=== PATIENT | female | born 1985 | race Caucasian/White ===

== ENCOUNTER 2017-03-28 19:44 | Emergency (ER) | payer SELFPAY ==
[2017-03-28 19:46] VITALS: BP 127/93; PULSE 94; RESP 16; TEMP 99.5; O2SAT 98
[2017-03-28 22:09] LABS: AUTOMATED NEUTROPHIL # 6.7 TH/MM3 (1.8-7.7); BASOPHIL # 0.1 TH/MM3 (0-0.2); BASOPHIL % 1.1 % (0.0-2.0); EOSINOPHIL # 0.3 TH/MM3 (0-0.4); EOSINOPHIL % 2.2 % (0.0-4.0); HEMATOCRIT 41.3 % (35.0-46.0); HEMO FLAGS DIFF FINAL; LYMPH % 37.8 % (9.0-44.0); LYMPHOCYTE # 4.7 TH/MM3 (1.0-4.8); MEAN CELL VOLUME 86.2 FL (80.0-100.0); MEAN CORPUSCULAR HEMOGLOBIN 29.4 PG (27.0-34.0); MEAN CORPUSCULAR HGB CONC 34.2 % (32.0-36.0); MONO % 5.4 % (0.0-8.0); NEUT % 53.5 % (16.0-70.0); PLATELET COUNT 326 TH/MM3 (150-450); RED CELL DISTRIBUTION WIDTH 14.8 % (11.6-17.2); WHITE BLOOD COUNT 12.4 TH/MM3 (4.0-11.0)
[2017-03-28] MEDS ORDERED: ZOLO100T PO (22:11)
[2017-03-28] MEDS ORDERED: METF500T PO (22:11)
[2017-03-28] MEDS ORDERED: ARIP2 PO (22:11)
[2017-03-28] MEDS ORDERED: FERR325C PO (22:11)
[2017-03-28] MEDS ORDERED: ALUMINUM/MAGNESIUM/SIMETH 30 ML CUP PO ONE (22:15)
[2017-03-28] MEDS ORDERED: FAMOTIDINE 20 MG/2 ML VIAL IV PUSH ONE (22:15)
[2017-03-28] MEDS ORDERED: SODIUM CHLOR 0.9% 1000 ML INJ 1,000 ML IV SCH (22:15)
[2017-03-28] MEDS ORDERED: SODIUM CHLORIDE 0.9% FLUSH 10 ML FLUSH IV FLUSH PRN (22:15)
[2017-03-28] MEDS ORDERED: ATROPINE/SCOPOLAM/HYOSCYAM/PB ELIXIR 10 ML CUP PO ONE (22:15)
--- NOTE | 2017-03-28 22:15 | PD ---
HPI Chief Complaint: Abdominal Pain Time Seen by Provider: 22:01 Travel History International Travel<30 days: No Contact w/Intl Traveler<30days: No Traveled to known affect area: No History of Present Illness HPI 31-year-old female complains of abdominal pain, nausea vomiting diarrhea, blood in the stool. Patient states that she has history of peptic ulcer status post endoscopy in the past. Patient was put on Protonix and antibiotic for one month. Patient states that she never had follow-up with a GI specialist after the treatment. Patient started having diffuse abdominal pain for the past 5 days. Patient states the pain in cramping pain and sharp pain diffuse over the abdomen. Patient denies any pain radiation. Patient states that she has intermittent nausea vomiting diarrhea with blood-tinged stool. Patient denies any dysuria or frequency. Patient denies any vaginal discharge or bleeding. Patient states that she has intermittent fever and chills for the past 4 days also. Patient states that abdominal pain is worse with eating. PFSH Past Medical History Cardiovascular Problems: Yes (HX OF ENDOCARDITIS) Kidney Stones: Yes Musculoskeletal: Yes (scoliosis, Doty Rods) ?: Not LMP: 03/01/17 Ovarian Cysts: Yes (PCOS, endometriosis) Social History Alcohol Use: No Tobacco Use: Yes Substance Use: Yes (clean of opiates x 6 months) Allergies-Medications (Allergen,Severity, Reaction): Coded Allergies: Penicillins (Verified Allergy, Severe, 03/28/17) metoclopramide (Verified Allergy, Severe, 03/28/17) ondansetron (Verified Allergy, Severe, 03/28/17) vancomycin (Verified Allergy, Severe, 03/28/17) iodine (Verified Allergy, Unknown, 03/28/17) Reported Meds & Prescriptions Reported Meds & Active Scripts Active Reported Iron (Ferrous Sulfate) 325 Mg Cap 325 Mg PO DAILY Metformin (Metformin HCl) 500 Mg Tab 500 Mg PO BIDPC Abilify (Aripiprazole) 2 Mg Tab 2 Mg PO DAILY Zoloft (Sertraline HCl) 100 Mg Tab 200 Mg PO DAILY Review of Systems General / Constitutional: No: Fever Eyes: No: Visual changes HENT: No: Headaches Cardiovascular: No: Chest Pain or Discomfort Respiratory: No: Shortness of Breath Gastrointestinal: Positive: Nausea, Vomiting, Diarrhea, Abdominal Pain, Hematochezia Genitourinary: No: Dysuria Musculoskeletal: No: Pain Skin: No Rash Neurologic: No: Weakness Psychiatric: No: Depression Endocrine: No: Polydipsia Hematologic/Lymphatic: No: Easy Bruising Physical Exam Narrative GENERAL: Well-nourished, well-developed patient. SKIN: Focused skin assessment warm/dry. HEAD: Normocephalic. EYES: No scleral icterus. No injection or drainage. NECK: Supple, trachea midline. No JVD or lymphadenopathy. CARDIOVASCULAR: Regular rate and rhythm without murmurs, gallops, or rubs. RESPIRATORY: Breath sounds equal bilaterally. No accessory muscle use. GASTROINTESTINAL: Abdomen soft, nondistended. Patient had mild diffuse tenderness over the abdomen. No rebound tenderness. No mass. MUSCULOSKELETAL: No cyanosis, or edema. BACK: Nontender without obvious deformity. No CVA tenderness. Data Data Last Documented VS Vital Signs Date Time Temp Pulse Resp B/P (MAP) Pulse Ox O2 Delivery O2 Flow Rate FiO2 03/29/17 00:15 98.4 82 14 122/89 (100) 100 Orders Orders Complete Blood Count With Diff (03/28/17 19:54) Comprehensive Metabolic Panel (03/28/17 19:54) Lipase (03/28/17 19:54) Prothrombin Time / Inr (Pt) (03/28/17 19:54) Act Partial Throm Time (Ptt) (03/28/17 19:54) Urinalysis - C+S If Indicated (03/28/17 19:54) Ed Urine Pregnancytest Poc (03/28/17 19:54) Type And Screen (03/28/17 19:54) Sodium Chlor 0.9% 1000 Ml Inj (Ns 1000 M (03/28/17 22:15) Sodium Chloride 0.9% Flush (Ns Flush) (03/28/17 22:15) Famotidine Inj (Pepcid Inj) (03/28/17 22:15) Al-Mag Hy-Si 40-40-4 Mg/Ml Liq (Mag-Al P (03/28/17 22:15) Jslxy-Hgnwud-Uerhev-Pb Liq ( Liq (03/28/17 22:15) Promethazine Inj (Phenergan Inj) (03/28/17 22:30) Ct Abd/Pel W/O Iv Contrast (03/28/17 22:33) Labs Laboratory Tests Test 03/28/17 21:42 White Blood Count 12.4 TH/MM3 Red Blood Count 4.80 MIL/MM3 Hemoglobin 14.1 GM/DL Hematocrit 41.3 % Mean Corpuscular Volume 86.2 FL Mean Corpuscular Hemoglobin 29.4 PG Mean Corpuscular Hemoglobin Concent 34.2 % Red Cell Distribution Width 14.8 % Platelet Count 326 TH/MM3 Mean Platelet Volume 8.2 FL Neutrophils (%) (Auto) 53.5 % Lymphocytes (%) (Auto) 37.8 % Monocytes (%) (Auto) 5.4 % Eosinophils (%) (Auto) 2.2 % Basophils (%) (Auto) 1.1 % Neutrophils # (Auto) 6.7 TH/MM3 Lymphocytes # (Auto) 4.7 TH/MM3 Monocytes # (Auto) 0.7 TH/MM3 Eosinophils # (Auto) 0.3 TH/MM3 Basophils # (Auto) 0.1 TH/MM3 CBC Comment DIFF FINAL Differential Comment Prothrombin Time 10.2 SEC Prothromb Time International Ratio 0.9 RATIO Activated Partial Thromboplast Time 28.4 SEC Blood Urea Nitrogen 5 MG/DL Creatinine 0.54 MG/DL Random Glucose 88 MG/DL Total Protein 8.1 GM/DL Albumin 3.8 GM/DL Calcium Level 9.3 MG/DL Alkaline Phosphatase 71 U/L Aspartate Amino Transf (AST/SGOT) 44 U/L Alanine Aminotransferase (ALT/SGPT) 53 U/L Total Bilirubin 0.3 MG/DL Sodium Level 136 MEQ/L Potassium Level 4.0 MEQ/L Chloride Level 105 MEQ/L Carbon Dioxide Level 21.5 MEQ/L Anion Gap 10 MEQ/L Estimat Glomerular Filtration Rate 131 ML/MIN Lipase 165 U/L [facility] Medical Decision Making Medical Screen Exam Complete: Yes Emergency Medical Condition: Yes Interpretation(s) 12:22 AM. Last Impressions Abdomen/Pelvis CT 03/28/17 [id number] Signed Impressions: Service Date/Time: Tuesday, March 28, 2017 23:08 - CONCLUSION: 1. No evidence of acute abdominal or pelvic process. No masses are identified. Kali Kwan MD 12:22 AM. CBC WBC 12.4. Normal differential. CMP within normal limit. Differential Diagnosis Differential diagnosis including stridor, PUD, pancreatitis, cholecystitis, colitis, UTI, pyelonephritis, nephrolithiasis. Narrative Course 31-year-old female with abdominal pain, nausea vomiting diarrhea, blood in the stool. History of peptic ulcer disease. Normal saline solution 1 25 cc an hour. Pepcid 20 mg IV. Maalox 30 cc by mouth. 10 cc by mouth. Diagnosis Primary Impression: Gastritis Qualified Codes: K29.00 - Acute gastritis without bleeding Additional Impression: Gastroenteritis Patient Instructions: General Instructions Additional Instructions: Take medications as directed. Follow-up local physician and front end java developer. Return if worse. Med/Other Pt SpecificInfo: Prescription(s) given Scripts Dicyclomine (Bentyl) 10 Mg Cap 10 MG PO TID for Bowel Management, #15 CAP 0 Refills Prov: Thierno Smith MD 03/29/17 Promethazine (Phenergan) 25 Mg Tablet 25 MG PO Q6H Y for NAUSEA OR VOMITING, #12 TAB 0 Refills Prov: Thierno Smith MD 03/29/17 Sucralfate (Carafate) 1 Gram Tab 1 GM PO QID for Ulcer Prevention, #120 TAB 0 Refills On empty stomach Prov: Thierno Smith MD 03/29/17 Pantoprazole (Protonix) 40 Mg Tab 40 MG PO DAILY for Reflux, #30 TAB 0 Refills Prov: Thierno Smith MD 03/29/17 Disposition: 01 DISCHARGE HOME Condition: Stable Thierno Smith MD Mar 28, 2017 22:15
[2017-03-28 22:20] LABS: APTT (PATIENT) 28.4 SEC (24.3-30.1); INTERNATIONAL NORMALIZED RATIO 0.9 RATIO; PROTHROMBIN TIME - PATIENT 10.2 SEC (9.8-11.6)
[2017-03-28] MEDS ORDERED: PROMETHAZINE INJ 25 MG/ML VIAL IM ONE (22:30)
[2017-03-28 22:39] LABS: ALKALINE PHOSPHATASE 71 U/L (45-117); ALT (GPT) 53 U/L (10-53); TOTAL BILIRUBIN ADULT 0.3 MG/DL (0.2-1.0)
[2017-03-28 22:58] LABS: ANION GAP 10 MEQ/L (5-15); AST (GOT) 44 U/L (15-37); BICARBONATE 21.5 MEQ/L (21.0-32.0); BLOOD UREA NITROGEN 5 MG/DL (7-18); CHLORIDE 105 MEQ/L (98-107); GLOMERULAR FILTRATION RATE 131 ML/MIN (>89); SODIUM (NA) 136 MEQ/L (136-145)
--- NOTE | 2017-03-28 23:56 | RADRPT ---
EXAM DATE/TIME: 03/28/2017 23:08 [facility] COMPARISON: No previous studies available for comparison. INDICATIONS : Abdomen pain with blood in stool past 3 days. ORAL CONTRAST: No oral contrast ingested. RADIATION DOSE: 6.64 CTDIvol (mGy) MEDICAL HISTORY : Cardiovascular disease. SURGICAL HISTORY : Doty rods ENCOUNTER: Initial ACUITY: 3 days PAIN SCALE: 6/10 LOCATION: Bilateral abdomen TECHNIQUE: Volumetric scanning of the abdomen and pelvis was performed. Using automated exposure control and ad justment of the mA and/or kV according to patient size, radiation dose was kept as low as reasonably achievable to obtain optimal diagnostic quality images. DICOM format image data is available electro nically for review and comparison. FINDINGS: Examination of the lung bases demonstrates no abnormality. No pleural fluid is identified. No pulmona ry nodules are present. The liver and spleen are free of focal defects. The gallbladder and pancreas demonstrate no abnormality. The adrenal glands are normal. The kidneys demonstrate no evidence of skinny id renal mass or hydronephrosis. No free fluid or abdominal masses are identified. No para-aortic krunal nopathy is seen. 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 There is previous fixation of scolio sis with Doty rods. Examination of the pelvis demonstrates no evidence of free fluid or pelvic mass. No abnormally enlarg ed inguinal or retroperitoneal lymph nodes are present. The bladder is unremarkable. CONCLUSION: 1. No evidence of acute abdominal or pelvic process. No masses are identified. Kali Kwan MD on March 28, 2017 at 23:53 Board Certified Radiologist. This report was verified electronically.
[2017-03-29 00:15] VITALS: BP 122/89; PULSE 82; RESP 14; TEMP 98.4; O2SAT 100
[2017-03-29] MEDS ORDERED: PROM25TA10 PO (00:29)
[2017-03-29] MEDS ORDERED: DICY10 PO (00:29)
[2017-03-29] MEDS ORDERED: CARA1TAB6 PO (00:29)
[2017-03-29] MEDS ORDERED: PROT40TA PO (00:29)
== END 2017-03-29 00:46 | disposition home or self-care (01) ==
LOC: NEPD 19:44
DX: K29.00 Acute gastritis without bleeding (principal); K52.9 Noninfective gastroenteritis and colitis, unspecified; Z72.0 Tobacco use
CPT/HCPCS: 74176; 80053; 83690; 84703; 85025; 85610; 85730; 86850; 86900; 86901; 96372; 96374; 99285; J2550; J7030

== ENCOUNTER 2017-04-13 15:45 | Emergency (ER) | payer SELFPAY ==
[~2017-04-13] VITALS: Ht 144.8 cm; Wt 60.0 kg
[~2017-04-13 15:45] MED LIST: ARIP2 PO; CARA1TAB6 PO; DICY10 PO; FERR325C PO; METF500T PO; PROM25TA10 PO; PROT40TA PO; ZOLO100T PO
[2017-04-13 15:46] VITALS: BP 141/90; PULSE 75; RESP 18; TEMP 99; O2SAT 99
[2017-04-13] MEDS ORDERED: SODIUM CHLOR 0.9% 1000 ML INJ 1,000 ML IV ONE ×2 (16:01→18:00)
[2017-04-13] MEDS ORDERED: SODIUM CHLORIDE 0.9% FLUSH 10 ML FLUSH IVF PRN (16:15)
[2017-04-13] MEDS ORDERED: PROCHLORPERAZINE INJ 10 MG/2 ML VIAL IV PUSH ONE (16:15)
--- NOTE | 2017-04-13 16:55 | PD ---
HPI Chief Complaint: GI Complaint Time Seen by Provider: 15:57 Travel History International Travel<30 days: No Contact w/Intl Traveler<30days: No Traveled to known affect area: No History of Present Illness HPI Patient is a 31-year-old female presenting to the emergency department for evaluation of burning with urination, nausea, vomiting, flank pain. Patient states this has been going on for week getting worse over the last 2-3 days. The nausea and vomiting started 2 days ago. He reports a history of urinary tract infections and kidney stones. She's been taking Tylenol and ibuprofen for the pain, she reports a fever with a max temp 102 last night. 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 PFSH Past Medical History Cardiovascular Problems: Yes (HX OF ENDOCARDITIS) Kidney Stones: Yes Musculoskeletal: Yes (scoliosis, Doty Rods) ?: Not LMP: 03/30/17 Ovarian Cysts: Yes (PCOS, endometriosis) Social History Alcohol Use: No Tobacco Use: Yes Substance Use: Yes (clean of opiates x 6 months) Allergies-Medications (Allergen,Severity, Reaction): Coded Allergies: Penicillins (Verified Allergy, Severe, 03/28/17) metoclopramide (Verified Allergy, Severe, 03/28/17) ondansetron (Verified Allergy, Severe, 03/28/17) prochlorperazine (Verified Allergy, Severe, 04/13/17) vancomycin (Verified Allergy, Severe, 03/28/17) iodine (Verified Allergy, Unknown, 03/28/17) Reported Meds & Prescriptions Reported Meds & Active Scripts Active Bentyl (Dicyclomine HCl) 10 Mg Cap 10 Mg PO TID Phenergan (Promethazine HCl) 25 Mg Tablet 25 Mg PO Q6H PRN Carafate (Sucralfate) 1 Gram Tab 1 Gm PO QID On empty stomach Protonix (Pantoprazole Sodium) 40 Mg Tab 40 Mg PO DAILY Reported Iron (Ferrous Sulfate) 325 Mg Cap 325 Mg PO DAILY Metformin (Metformin HCl) 500 Mg Tab 500 Mg PO BIDPC Abilify (Aripiprazole) 2 Mg Tab 2 Mg PO DAILY Zoloft (Sertraline HCl) 100 Mg Tab 200 Mg PO DAILY Review of Systems Except as stated in HPI: all other systems reviewed are Neg General / Constitutional: Positive: Fever, Chills Gastrointestinal: Positive: Nausea, Vomiting, No: Abdominal Pain Genitourinary: Positive: Urgency, Frequency, Dysuria, Flank Pain, No: Discharge , Vaginal Bleeding Musculoskeletal: No: Myalgias Neurologic: No: Weakness, Dizziness, Syncope Physical Exam Narrative GENERAL: Well-developed, well-nourished, alert female. Resting comfortably in no acute distress. SKIN: Warm and dry. HEAD: Atraumatic. Normocephalic. EYES: Pupils equal and round. No scleral icterus. No injection or drainage. ENT: No nasal bleeding or discharge. Mucous membranes pink and moist. NECK: Trachea midline. No JVD. CARDIOVASCULAR: Regular rate and rhythm. RESPIRATORY: No accessory muscle use. Clear to auscultation. Breath sounds equal bilaterally. GASTROINTESTINAL: Abdomen soft, non-tender, nondistended. Hepatic and splenic margins not palpable. No CVAT bilaterally. Positive bowel sounds, no rebound, no guarding. MUSCULOSKELETAL: Extremities without clubbing, cyanosis, or edema. No obvious deformities. NEUROLOGICAL: Awake and alert. No obvious cranial nerve deficits. Motor grossly within normal limits. Five out of 5 muscle strength in the arms and legs. Normal speech. PSYCHIATRIC: Appropriate mood and affect; insight and judgment normal. Data Data Last Documented VS Vital Signs Date Time Temp Pulse Resp B/P (MAP) Pulse Ox O2 Delivery O2 Flow Rate FiO2 04/13/17 18:31 72 16 136/78 (97) 98 Room Air 04/13/17 15:46 99.0 Orders Orders Complete Blood Count With Diff (04/13/17 16:01) Comprehensive Metabolic Panel (04/13/17 16:01) Urinalysis - C+S If Indicated (04/13/17 16:01) Ed Urine Pregnancytest Poc (04/13/17 16:01) Ecg Monitoring (04/13/17 16:01) Iv Access Insert/Monitor (04/13/17 16:01) Sodium Chloride 0.9% Flush (Ns Flush) (04/13/17 16:15) Sodium Chlor 0.9% 1000 Ml Inj (Ns 1000 M (04/13/17 16:01) Prochlorperazine Inj (Compazine Inj) (04/13/17 16:15) Vascular Access Team Consult/P PRN (04/13/17 16:50) Vascular Poc Ultrasound (04/13/17 ) Urine Culture (04/13/17 16:45) Ciprofloxacin 400 Mg Premix (Cipro 400 M (04/13/17 17:30) Ketorolac Inj (Toradol Inj) (04/13/17 18:00) Diphenhydramine Inj (Benadryl Inj) (04/13/17 18:00) Sodium Chlor 0.9% 1000 Ml Inj (Ns 1000 M (04/13/17 18:00) Labs Laboratory Tests Test 04/13/17 16:45 White Blood Count 11.1 TH/MM3 Red Blood Count 4.29 MIL/MM3 Hemoglobin 12.8 GM/DL Hematocrit 37.6 % Mean Corpuscular Volume 87.6 FL Mean Corpuscular Hemoglobin 29.8 PG Mean Corpuscular Hemoglobin Concent 34.0 % Red Cell Distribution Width 14.2 % Platelet Count 237 TH/MM3 Mean Platelet Volume 8.7 FL Neutrophils (%) (Auto) 69.6 % Lymphocytes (%) (Auto) 21.1 % Monocytes (%) (Auto) 6.5 % Eosinophils (%) (Auto) 2.1 % Basophils (%) (Auto) 0.7 % Neutrophils # (Auto) 7.8 TH/MM3 Lymphocytes # (Auto) 2.3 TH/MM3 Monocytes # (Auto) 0.7 TH/MM3 Eosinophils # (Auto) 0.2 TH/MM3 Basophils # (Auto) 0.1 TH/MM3 CBC Comment DIFF FINAL Differential Comment Urine Color YELLOW Urine Turbidity HAZY Urine pH 7.0 Urine Specific [place] 1.020 Urine Protein TRACE mg/dL Urine Glucose (UA) NEG mg/dL Urine Ketones NEG mg/dL Urine Occult Blood NEG Urine Nitrite POS Urine Bilirubin NEG Urine Urobilinogen LESS THAN 2.0 MG/DL Urine Leukocyte Esterase LARGE Urine RBC 6 /hpf Urine WBC 81 /hpf Urine Squamous Epithelial Cells 18 /hpf Urine Bacteria MANY /hpf Urine Mucus FEW /lpf Microscopic Urinalysis Comment CULTURE INDICATED Blood Urea Nitrogen 13 MG/DL Creatinine 0.90 MG/DL Random Glucose 93 MG/DL Total Protein 6.9 GM/DL Albumin 3.2 GM/DL Calcium Level 8.6 MG/DL Alkaline Phosphatase 86 U/L Aspartate Amino Transf (AST/SGOT) 20 U/L Alanine Aminotransferase (ALT/SGPT) 39 U/L Total Bilirubin 0.2 MG/DL Sodium Level 137 MEQ/L Potassium Level 4.4 MEQ/L Chloride Level 106 MEQ/L Carbon Dioxide Level 25.3 MEQ/L Anion Gap 6 MEQ/L Estimat Glomerular Filtration Rate 73 ML/MIN MDM Medical Decision Making Medical Screen Exam Complete: Yes Emergency Medical Condition: Yes Interpretation(s) Vital Signs Date Time Temp Pulse Resp B/P (MAP) Pulse Ox O2 Delivery O2 Flow Rate FiO2 04/13/17 15:46 99.0 75 18 141/90 (107) 99 Room Air Differential Diagnosis UTI vs Pyelonephritis vs metabolic abnormality vs other Narrative Course Patient is a 31-year-old female presenting with 1 week of urinary symptoms. Patient appears well, her vital signs are stable. Labs ordered and pending. CBC no acute abnormalities. Chemistry was reviewed, no acute abnormalities. Urinalysis with nitrite positive urinary tract infection. Patient was given dose of IV ciprofloxacin in the emergency department as well as 1 L of IV fluids and Toradol. She'll be discharged home with antibiotics to complete full course of therapy pending culture results. Patient was encouraged to increase fluid intake. She is encouraged to follow- up with her primary doctor return to emergency department for new worsening symptoms. Patient verbalized understanding of instructions. Patient is stable for discharge. Diagnosis Primary Impression: Pyelonephritis Referrals: Primary Care Physician Patient Instructions: General Instructions, Kidney Infection (ED), Urinary Tract Infection in Women (ED) Additional Instructions: Increase oral fluid intake Complete full course of antibiotics as prescribed Follow-up with your primary doctor Return to emergency department for any new or worsening symptoms Med/Other Pt SpecificInfo: Prescription(s) given Scripts Promethazine (Phenergan) 25 Mg Tablet 25 MG PO Q6H Y for NAUSEA OR VOMITING, #10 TAB 0 Refills Prov: Marii Hankins 04/13/17 Ciprofloxacin (Ciprofloxacin) 500 Mg Tab 500 MG PO BID for Infection, #14 TAB 0 Refills Prov: Marii Hankins 04/13/17 Disposition: 01 DISCHARGE HOME Condition: Stable Marii Hankins Apr 13, 2017 16:55
[2017-04-13 17:06] LABS: AUTOMATED NEUTROPHIL # 7.8 TH/MM3 (1.8-7.7); BASOPHIL # 0.1 TH/MM3 (0-0.2); BASOPHIL % 0.7 % (0.0-2.0); EOSINOPHIL # 0.2 TH/MM3 (0-0.4); EOSINOPHIL % 2.1 % (0.0-4.0); HEMATOCRIT 37.6 % (35.0-46.0); HEMO FLAGS DIFF FINAL; LYMPH % 21.1 % (9.0-44.0); LYMPHOCYTE # 2.3 TH/MM3 (1.0-4.8); MEAN CELL VOLUME 87.6 FL (80.0-100.0); MEAN CORPUSCULAR HEMOGLOBIN 29.8 PG (27.0-34.0); MONO % 6.5 % (0.0-8.0); NEUT % 69.6 % (16.0-70.0); PLATELET COUNT 237 TH/MM3 (150-450); RED BLOOD COUNT 4.29 MIL/MM3 (4.00-5.30); RED CELL DISTRIBUTION WIDTH 14.2 % (11.6-17.2); WHITE BLOOD COUNT 11.1 TH/MM3 (4.0-11.0)
[2017-04-13 17:11] LABS: BACTERIA, URINE MANY /hpf; BLOOD, URINE NEG (NEG); COMMENT (UR) CULTURE INDICATED; CULTURE IF INDICATED CULTURE INDICATED; GLUCOSE,URINE NEG (NEG); KETONE, URINE NEG (NEG); MUCUS URINE FEW /lpf (OCC); NITRITE,URINE POS (NEG); SQUAMOUS EPITHELIAL CELL URINE 18 /hpf (0-5); URINE COLOR YELLOW (YELLW/STRAW)
[2017-04-13 17:26] LABS: ALT (GPT) 39 U/L (10-53); ANION GAP 6 MEQ/L (5-15); AST (GOT) 20 U/L (15-37); BICARBONATE 25.3 MEQ/L (21.0-32.0); BLOOD UREA NITROGEN 13 MG/DL (7-18); CHLORIDE 106 MEQ/L (98-107); GLOMERULAR FILTRATION RATE 73 ML/MIN (>89); POTASSIUM 4.4 MEQ/L (3.5-5.1); SODIUM (NA) 137 MEQ/L (136-145)
[2017-04-13 17:29] LABS: ALKALINE PHOSPHATASE 86 U/L (45-117); TOTAL BILIRUBIN ADULT 0.2 MG/DL (0.2-1.0)
[2017-04-13] MEDS ORDERED: CIPROFLOXACIN 400 MG PREMIX 200 ML IV ONE (17:30)
[2017-04-13] MEDS ORDERED: KETOROLAC TROMETHAMINE 30 MG/ML (IVP) VIAL IV PUSH ONE (18:00)
[2017-04-13] MEDS ORDERED: diphenhydrAMINE HCL 50 MG/ML VIAL IV PUSH ONE (18:00)
[2017-04-13 18:31] VITALS: BP 136/78; PULSE 72; RESP 16; O2SAT 98
[2017-04-13] MEDS ORDERED: PROM25TA10 PO (18:49)
[2017-04-13] MEDS ORDERED: CIPR500T2 PO (18:49)
== END 2017-04-13 19:16 | disposition home or self-care (01) ==
LOC: NEPC 15:45
DX: N12 Tubulo-interstitial nephritis, not specified as acute or chronic (principal); B96.1 Klebsiella pneumoniae [K. pneumoniae] as the cause of diseases classified elsewhere; R11.2 Nausea with vomiting, unspecified; M41.9 Scoliosis, unspecified; Z79.899 Other long term (current) drug therapy; Z87.442 Personal history of urinary calculi; Z72.0 Tobacco use; Z88.0 Allergy status to penicillin; Z88.8 Allergy status to other drugs, medicaments and biological substances
CPT/HCPCS: 80053; 81001; 84703; 85025; 87077; 87086; 87186; 96374; 96375; 99285; J0744; J1200; J1885; J7030

== ENCOUNTER 2017-04-25 22:31 | Emergency (ER) | payer SELFPAY ==
[~2017-04-25] VITALS: Ht 144.8 cm; Wt 55.0 kg
[~2017-04-25 22:31] MED LIST changes: +CIPR500T2 PO
[2017-04-25 22:33] VITALS: BP 137/92; PULSE 96; RESP 16; TEMP 99.6; O2SAT 98
[2017-04-25] MEDS ORDERED: TRAZ50TA12 PO (23:13)
--- NOTE | 2017-04-25 23:34 | PD ---
HPI Chief Complaint: Skin Problem Time Seen by Provider: 23:30 Travel History International Travel<30 days: No Contact w/Intl Traveler<30days: No Traveled to known affect area: No History of Present Illness HPI 31-year-old female came to the emergency room with history of a tender swelling on the left inner aspect of her arm proximally since this morning. Patient has history of MRSA. She has had abscess in the past on her face. No history of fever or chills. Vital signs were stable here. She does not appear to be in any significant distress. [facility] Past Medical History Narrative Medical List of her past medical, surgical, social and family history is reviewed from the nursing note. Anxiety: Yes Depression: Yes Cardiovascular Problems: Yes (HX OF ENDOCARDITIS) Patient Takes Glucophage: Yes (metformin ) Diminished Hearing: No Kidney Stones: Yes Musculoskeletal: Yes (scoliosis, Doty Rods) ?: Unknown LMP: 03/30/2017 : 0 Ovarian Cysts: Yes (PCOS, endometriosis) Past Surgical History Genitourinary Surgery: Yes Tonsillectomy: Yes Other Surgery: Yes (breast implants ) Social History Alcohol Use: No Tobacco Use: Yes (1/2 PPD) Substance Use: Yes (1 week ago) Allergies-Medications (Allergen,Severity, Reaction): Coded Allergies: Penicillins (Verified Allergy, Severe, 04/25/17) metoclopramide (Verified Allergy, Severe, 04/25/17) ondansetron (Verified Allergy, Severe, 04/25/17) prochlorperazine (Verified Allergy, Severe, 04/25/17) vancomycin (Verified Allergy, Severe, 04/25/17) iodine (Verified Allergy, Unknown, 04/25/17) Comments list of her allergies reviewed from the nursing note. Reported Meds & Prescriptions Reported Meds & Active Scripts Active Bactrim DS (Sulfamethoxazole-Trimethoprim) 800-160 Mg Tab 1 Tab PO BID Phenergan (Promethazine HCl) 25 Mg Tablet 25 Mg PO Q6H PRN Phenergan (Promethazine HCl) 25 Mg Tablet 25 Mg PO Q6H PRN Reported Trazodone (Trazodone HCl) 50 Mg Tab 50 Mg PO HS Metformin (Metformin HCl) 500 Mg Tab 500 Mg PO BIDPC Abilify (Aripiprazole) 2 Mg Tab 2 Mg PO DAILY Zoloft (Sertraline HCl) 100 Mg Tab 200 Mg PO DAILY Narrative Medication List of her home medications reviewed from the nursing note. Review of Systems Except as stated in HPI: all other systems reviewed are Neg Skin: Positive Lumps Physical Exam Narrative GENERAL: Awake, alert, no obvious distress SKIN: Focused skin assessment warm/dry. 2 x 2 centimeter erythematous, raised, indurated and tender lump on the inner aspect of her left arm proximally. No discharge. Central scabbing HEAD: Atraumatic. Normocephalic. EYES: Pupils equal and round. No scleral icterus. No injection or drainage. ENT: No nasal bleeding or discharge. Mucous membranes pink and moist. NECK: Trachea midline. No JVD. CARDIOVASCULAR: Regular rate and rhythm. No murmur appreciated. RESPIRATORY: No accessory muscle use. Clear to auscultation. Breath sounds equal bilaterally. GASTROINTESTINAL: Abdomen soft, non-tender, nondistended. Hepatic and splenic margins not palpable. MUSCULOSKELETAL: No obvious deformities. No clubbing. No cyanosis. No edema. NEUROLOGICAL: Awake and alert. No obvious cranial nerve deficits. Motor grossly within normal limits. Normal speech. PSYCHIATRIC: Appropriate mood and affect; insight and judgment normal. Data Data Last Documented VS Orders Orders Basic Metabolic Panel (Bmp) (04/26/17 00:21) Complete Blood Count With Diff (04/26/17 00:21) Blood Culture (04/26/17 00:21) Ketorolac Inj (Toradol Inj) (04/26/17 00:30) Clindamycin Inj (Cleocin Inj) (04/26/17 00:30) Sulfamet-Trimeth Ds 800-160 Mg (Bactrim (04/26/17 00:30) Sodium Chlor 0.9% 1000 Ml Inj (Ns 1000 M (04/26/17 00:30) Diphenhydramine Inj (Benadryl Inj) (04/26/17 01:45) Methylprednisolone So Succ Inj (Solumedr (04/26/17 01:45) Diphenhydramine Inj (Benadryl Inj) (04/26/17 01:35) Ed Discharge Order (04/26/17 01:47) Labs Laboratory Tests Test 04/26/17 00:40 White Blood Count 14.9 TH/MM3 Red Blood Count 5.20 MIL/MM3 Hemoglobin 15.4 GM/DL Hematocrit 45.2 % Mean Corpuscular Volume 86.9 FL Mean Corpuscular Hemoglobin 29.6 PG Mean Corpuscular Hemoglobin Concent 34.1 % Red Cell Distribution Width 13.7 % Platelet Count 310 TH/MM3 Mean Platelet Volume 9.5 FL Neutrophils (%) (Auto) 67.8 % Lymphocytes (%) (Auto) 23.5 % Monocytes (%) (Auto) 6.0 % Eosinophils (%) (Auto) 2.1 % Basophils (%) (Auto) 0.6 % Neutrophils # (Auto) 10.1 TH/MM3 Lymphocytes # (Auto) 3.5 TH/MM3 Monocytes # (Auto) 0.9 TH/MM3 Eosinophils # (Auto) 0.3 TH/MM3 Basophils # (Auto) 0.1 TH/MM3 CBC Comment DIFF FINAL Differential Comment Blood Urea Nitrogen 8 MG/DL Creatinine 0.66 MG/DL Random Glucose 86 MG/DL Calcium Level 8.9 MG/DL Sodium Level 137 MEQ/L Potassium Level 3.5 MEQ/L Chloride Level 102 MEQ/L Carbon Dioxide Level 27.7 MEQ/L Anion Gap 7 MEQ/L Estimat Glomerular Filtration Rate 104 ML/MIN MDM Medical Decision Making Medical Screen Exam Complete: Yes Emergency Medical Condition: Yes Medical Record Reviewed: Yes Differential Diagnosis Cellulitis, Narrative Course 1:43 AM CBC has elevated white blood cell count with no left shift. Chemistries within normal limits. Patient was given IV clindamycin and by mouth Bactrim along with IV Toradol. I was just told by the nurse that patient was complaining of some itching all over her body and some itching at the back of her throat. I've given her IV Benadryl and Solu-Medrol. I went to let the patient know about the blood test results and to let her know that I would be discharging her home on Bactrim prescription. I'm not sure what caused the allergic reaction but I did not notice any external hives or anything else. Patient was comfortable to go home but she asked me if IV drug abuse could do this because she shot a few days ago twice. I have let her know how risky this behavior is especially him infection standpoint. Patient says that she has been clean for 6 months and then started to use again. She has history of bacterial endocarditis in the past. Procedures EKG Prior to Arrival: No Diagnosis Primary Impression: Cellulitis Qualified Codes: L03.114 - Cellulitis of left upper limb Additional Impression: IV drug abuse Referrals: Primary Care Physician Additional Instructions: Take the medication as per the prescription direction. Return to the ER if the condition worsens or any other new concerns. You should not be indulging in risky behavior like IV drug abuse since it will cause severe infection including . Med/Other Pt SpecificInfo: Prescription(s) given Scripts Sulfamethoxazole-Trimethoprim (Bactrim DS) 800-160 Mg Tab 1 TAB PO BID for Infection, #20 TAB 0 Refills Prov: Rona Villa MD 04/26/17 Disposition: 01 DISCHARGE HOME Condition: Stable Rona Villa MD Apr 25, 2017 23:34
[2017-04-26] MEDS ORDERED: CLINDAMYCIN PHOS 900 MG/6 ML VIAL IM ONE (00:30)
[2017-04-26] MEDS ORDERED: KETOROLAC TROMETHAMINE 30 MG/ML (IVP) VIAL IVP ONE (00:30)
[2017-04-26] MEDS ORDERED: SULFAMETHOXAZOLE-TRIMETHOPRIM DS 800-160 MG TAB PO ONE (00:30)
[2017-04-26] MEDS ORDERED: SODIUM CHLOR 0.9% 1000 ML INJ 1,000 ML IV ONE (00:30)
[2017-04-26 01:13] LABS: BICARBONATE 27.7 MEQ/L (21.0-32.0); POTASSIUM 3.5 MEQ/L (3.5-5.1)
[2017-04-26 01:19] LABS: AUTOMATED NEUTROPHIL # 10.1 TH/MM3 (1.8-7.7); BASOPHIL # 0.1 TH/MM3 (0-0.2); BASOPHIL % 0.6 % (0.0-2.0); EOSINOPHIL # 0.3 TH/MM3 (0-0.4); EOSINOPHIL % 2.1 % (0.0-4.0); HEMATOCRIT 45.2 % (35.0-46.0); HEMO FLAGS DIFF FINAL; LYMPH % 23.5 % (9.0-44.0); LYMPHOCYTE # 3.5 TH/MM3 (1.0-4.8); MEAN CELL VOLUME 86.9 FL (80.0-100.0); MEAN CORPUSCULAR HEMOGLOBIN 29.6 PG (27.0-34.0); MEAN CORPUSCULAR HGB CONC 34.1 % (32.0-36.0); NEUT % 67.8 % (16.0-70.0); PLATELET COUNT 310 TH/MM3 (150-450); RED CELL DISTRIBUTION WIDTH 13.7 % (11.6-17.2); WHITE BLOOD COUNT 14.9 TH/MM3 (4.0-11.0)
[2017-04-26] MEDS ORDERED: diphenhydrAMINE HCL 50 MG/ML VIAL ONE (01:35)
[2017-04-26] MEDS ORDERED: diphenhydrAMINE HCL 50 MG/ML VIAL IV PUSH ONE (01:45)
[2017-04-26] MEDS ORDERED: methylPREDNISolone SOD SUCC 125 MG/2 ML VIAL IV PUSH ONE (01:45)
[2017-04-26] MEDS ORDERED: BACT800T5 PO (01:47)
== END 2017-04-26 02:19 | disposition home or self-care (01) ==
LOC: NEPC 22:31
DX: L03.114 Cellulitis of left upper limb (principal); F19.10 Other psychoactive substance abuse, uncomplicated; F41.9 Anxiety disorder, unspecified; F32.9 Major depressive disorder, single episode, unspecified; M41.9 Scoliosis, unspecified; F17.200 Nicotine dependence, unspecified, uncomplicated; Z79.899 Other long term (current) drug therapy; Z87.442 Personal history of urinary calculi
CPT/HCPCS: 80048; 85025; 87040; 96372; 96374; 96375; 99284; J1200; J1885; J2930; J7030

== ENCOUNTER 2017-05-02 10:24 | Emergency (ER) | payer SELFPAY ==
[~2017-05-02] VITALS: Ht 144.8 cm; Wt 53.0 kg
[~2017-05-02 10:24] MED LIST changes: +BACT800T5 PO; -CARA1TAB6 PO; -CIPR500T2 PO; -DICY10 PO; -FERR325C PO; -PROT40TA PO; +TRAZ50TA12 PO
[2017-05-02 10:26] VITALS: BP 131/94; PULSE 93; RESP 15; TEMP 99.4; O2SAT 98
[2017-05-02] MEDS ORDERED: LIDOCAINE 1%/EPINEPHrine 1:100,000 SOLN 20 ML VIAL INFIL ONE (10:45)
[2017-05-02] MEDS ORDERED: SODIUM CHLORIDE 0.9% FLUSH 10 ML FLUSH IV FLUSH PRN (11:00)
[2017-05-02] MEDS ORDERED: LIDOCAINE VISCOUS 2% SOLN 15 ML UDC PO ONE (11:00)
[2017-05-02] MEDS ORDERED: DICYCLOMINE HCL 10 MG CAP PO ONE (11:00)
[2017-05-02] MEDS ORDERED: ALUMINUM/MAGNESIUM/SIMETH 30 ML CUP PO ONE (11:00)
[2017-05-02] MEDS ORDERED: SODIUM CHLOR 0.9% 1000 ML INJ 1,000 ML IV SCH (11:00)
[2017-05-02] MEDS ORDERED: PANTOPRAZOLE SODIUM 40 MG VIAL IVP ONE (11:00)
[2017-05-02] MEDS ORDERED: PROMETHAZINE INJ 25 MG/ML VIAL IM ONE (11:00)
--- NOTE | 2017-05-02 11:12 | PD ---
Physical Exam Date Seen by Provider: May 02, 2017 Time Seen by Provider: 11:09 Data Data Last Documented VS Vital Signs Date Time Temp Pulse Resp B/P (MAP) Pulse Ox O2 Delivery O2 Flow Rate FiO2 05/02/17 10:26 99.4 93 15 131/94 (106) 98 Orders Orders Lidocai-Epi 1%-1:100,000 Inj (Xylocaine- (05/02/17 10:45) Promethazine Inj (Phenergan Inj) (05/02/17 11:00) Complete Blood Count With Diff (05/02/17 11:00) Comprehensive Metabolic Panel (05/02/17 11:00) Lipase (05/02/17 11:00) Urinalysis - C+S If Indicated (05/02/17 11:00) Iv Access Insert/Monitor (05/02/17 11:00) Ecg Monitoring (05/02/17 11:00) Oximetry (05/02/17 11:00) Pantoprazole Inj (Protonix Inj) (05/02/17 11:00) Sodium Chlor 0.9% 1000 Ml Inj (Ns 1000 M (05/02/17 11:00) Sodium Chloride 0.9% Flush (Ns Flush) (05/02/17 11:00) Dicyclomine (Bentyl) (05/02/17 11:00) Al-Mag Hy-Si 40-40-4 Mg/Ml Liq (Mag-Al P (05/02/17 11:00) Lidocaine 2% Viscous (Xylocaine 2% Visco (05/02/17 11:00) MDM Supervised Visit with ANGELA: No Narrative Course I was asked to evaluate this patient's left arm abscess. The patient was initially seen by Dr. Faria. Please see his note for full H& P. On my exam there is an indurated area in the left upper arm which measures about 2 cm in diameter. It is fluctuant but there is no pointing or drainage. There is a zone of inflammation around it but no lymphangitis.. Abscess I&D was performed. Please see my procedure note for details. Dr. Faria retains care of this patient. Please see his note for disposition. Procedures Procedure Narrative INCISION AND DRAINAGE OF ABSCESS: The area was prepped and was sterilely draped. A subcutaneous wheal of 1 % Xylocaine with epinephrine with a total number 2.5 mL was used to anesthetize the area properly. A number 11 scalpel was used to make a 1-cm incision across the area of the abscess. The abscess was drained, complex loculations were broken down, and irrigated with normal saline. Cultures were obtained. Quarter inch iodoform packing was placed in the wound. Sterile dressing applied. Patient advised to have packing removed in two days. Brina Lackey May 02, 2017 11:12
[2017-05-02 11:55] VITALS: O2SAT 98
--- NOTE | 2017-05-02 12:01 | PD ---
HPI Chief Complaint: Skin Problem Time Seen by Provider: 10:40 Travel History International Travel<30 days: No Contact w/Intl Traveler<30days: No Traveled to known affect area: No History of Present Illness HPI 31-year-old female arrives complaining of pain in the left arm. She was seen here and diagnosed with cellulitis. She has been compliant with Bactrim since discharge. She reports discharge from the proximal left arm with yellow purulent material however shortly after resolution the arm became hot tender. She also reports vomiting and abdominal pain. She does not tell me that she has abused IV drugs lately however prior documentation less than a month ago shows that. She denies chest pain and has no shortness of breath. She reports prior to starting Bactrim she was on Cipro and has been on antibiotics for 3 weeks. PFSH Past Medical History Anxiety: Yes Depression: Yes Cardiovascular Problems: Yes (HX OF ENDOCARDITIS) Diminished Hearing: No Kidney Stones: Yes Musculoskeletal: Yes (scoliosis, Doty Rods) ?: Not LMP: 04/29/17 : 0 Ovarian Cysts: Yes (PCOS, endometriosis) Past Surgical History Genitourinary Surgery: Yes Tonsillectomy: Yes Other Surgery: Yes (breast implants ) Social History Alcohol Use: No Tobacco Use: Yes (1/2 PPD) Substance Use: Yes (1 week ago) Allergies-Medications (Allergen,Severity, Reaction): Coded Allergies: Penicillins (Verified Allergy, Severe, 04/25/17) metoclopramide (Verified Allergy, Severe, 04/25/17) ondansetron (Verified Allergy, Severe, 04/25/17) prochlorperazine (Verified Allergy, Severe, 04/25/17) vancomycin (Verified Allergy, Severe, 04/25/17) iodine (Verified Allergy, Unknown, 04/25/17) Reported Meds & Prescriptions Reported Meds & Active Scripts Active Bactrim DS (Sulfamethoxazole-Trimethoprim) 800-160 Mg Tab 1 Tab PO BID Phenergan (Promethazine HCl) 25 Mg Tablet 25 Mg PO Q6H PRN Phenergan (Promethazine HCl) 25 Mg Tablet 25 Mg PO Q6H PRN Reported Trazodone (Trazodone HCl) 50 Mg Tab 50 Mg PO HS Metformin (Metformin HCl) 500 Mg Tab 500 Mg PO BIDPC Abilify (Aripiprazole) 2 Mg Tab 2 Mg PO DAILY Zoloft (Sertraline HCl) 100 Mg Tab 200 Mg PO DAILY Review of Systems Except as stated in HPI: all other systems reviewed are Neg General / Constitutional: No: Fever Cardiovascular: No: Chest Pain or Discomfort, Palpitations, Irregular Rhythm Respiratory: No: Cough, Shortness of Breath Gastrointestinal: Positive: Nausea, Vomiting, Abdominal Pain Physical Exam Narrative GENERAL: The patient is 31 years old, ambulatory, speaking full sentences in no acute distress SKIN: Warm and dry. Along the proximal left arm about 5-10 cm distal from the axilla, just medial to the midline, there is about 6 cm in total of erythema with a central focus consistent with a cellulitis and abscess with trace fluctuance. HEAD: Atraumatic. Normocephalic. EYES: Pupils equal and round. No scleral icterus. No injection or drainage. ENT: No nasal bleeding or discharge. Mucous membranes pink and moist. NECK: Trachea midline. No JVD. CARDIOVASCULAR: Regular rate and rhythm. No murmur. RESPIRATORY: No accessory muscle use. Clear to auscultation. Breath sounds equal bilaterally. GASTROINTESTINAL: Abdomen soft, non-tender, nondistended. Hepatic and splenic margins not palpable. MUSCULOSKELETAL: Along the proximal left arm there is erythema about 5 cm in total. NEUROLOGICAL: Awake and alert. No obvious cranial nerve deficits. Motor grossly within normal limits. Five out of 5 muscle strength in the arms and legs. Normal speech. PSYCHIATRIC: Appropriate mood and affect; insight and judgment normal. Data Data Last Documented VS Vital Signs Date Time Temp Pulse Resp B/P (MAP) Pulse Ox O2 Delivery O2 Flow Rate FiO2 05/02/17 11:55 98 Room Air 05/02/17 10:26 99.4 93 15 Vital Signs Date Time Temp Pulse Resp B/P (MAP) Pulse Ox O2 Delivery O2 Flow Rate FiO2 05/02/17 11:55 98 Room Air 05/02/17 10:26 99.4 93 15 131/94 (106) 98 Orders Orders Lidocai-Epi 1%-1:100,000 Inj (Xylocaine- (05/02/17 10:45) Promethazine Inj (Phenergan Inj) (05/02/17 11:00) Complete Blood Count With Diff (05/02/17 11:00) Comprehensive Metabolic Panel (05/02/17 11:00) Lipase (05/02/17 11:00) Urinalysis - C+S If Indicated (05/02/17 11:00) Iv Access Insert/Monitor (05/02/17 11:00) Ecg Monitoring (05/02/17 11:00) Oximetry (05/02/17 11:00) Pantoprazole Inj (Protonix Inj) (05/02/17 11:00) Sodium Chlor 0.9% 1000 Ml Inj (Ns 1000 M (05/02/17 11:00) Sodium Chloride 0.9% Flush (Ns Flush) (05/02/17 11:00) Dicyclomine (Bentyl) (05/02/17 11:00) Al-Mag Hy-Si 40-40-4 Mg/Ml Liq (Mag-Al P (05/02/17 11:00) Lidocaine 2% Viscous (Xylocaine 2% Visco (05/02/17 11:00) Ed Discharge Order (05/02/17 12:01) MDM Medical Decision Making Medical Screen Exam Complete: Yes Emergency Medical Condition: Yes Medical Record Reviewed: Yes Differential Diagnosis cellulitis, abscess, endocarditis, UTI, hepatobiliary disease, colitis, obstruction Narrative Course The patient underwent incision and drainage of the left arm cellulitic abscess. Shortly thereafter she began vomiting and for that reason blood work and IV hydration was ordered. The patient refused IV placement and then elected to leave AGAINST MEDICAL ADVICE. Risks insodoing are not limited to endocarditis if continued drug abuse occurs. Septic shock and potentially disability is also of concern. The patient is competent. She is able to make informed decisions. She knows she can return any time. Diagnosis Primary Impression: Left against medical advice Disposition: 07 AGAINST MEDICAL ADVICE Condition: Claude Owens MD May 02, 2017 12:01
== END 2017-05-02 13:00 | disposition left against medical advice (07) ==
LOC: NEPD 10:24
DX: L02.414 Cutaneous abscess of left upper limb (principal); R11.2 Nausea with vomiting, unspecified; F17.200 Nicotine dependence, unspecified, uncomplicated; F41.9 Anxiety disorder, unspecified; F32.9 Major depressive disorder, single episode, unspecified; M41.9 Scoliosis, unspecified; Z79.899 Other long term (current) drug therapy; Z88.0 Allergy status to penicillin; Z88.5 Allergy status to narcotic agent
CPT/HCPCS: 96372; 99285; J2550

== ENCOUNTER 2017-05-31 02:42 | Observation (INO) | payer SELFPAY ==
[2017-05-31] VITALS (12 sets, daily range): BP systolic 90–140; BP diastolic 56–97; PULSE 70–110; RESP 16–20; TEMP 98.8–101.9; O2SAT 98–100
[~2017-05-31] VITALS: Ht 144.8 cm; Wt 58.3 kg
[2017-05-31] MEDS ORDERED: HYDR8TAB PO (03:05)
[2017-05-31] MEDS ORDERED: SODIUM CHLOR 0.9% 1000 ML INJ 1,000 ML IV ONE ×2 (04:38)
[2017-05-31] MEDS ORDERED: cefTRIAXone INJ 2,000 MG in SODIUM CHLORIDE 0.9% INJ 100 ML IV ONE (04:45)
[2017-05-31] MEDS ORDERED: ACETAMINOPHEN 325 MG TAB PO ONE (04:45)
--- NOTE | 2017-05-31 04:46 | RADRPT ---
EXAM DATE/TIME: 05/31/2017 03:37 This report includes an Addendum and supersedes previous reports for this exam. [facility] COMPARISON: No previous studies available for comparison. INDICATIONS : Fever. MEDICAL HISTORY : Cardiovascular disease. SURGICAL HISTORY : Doty rods ENCOUNTER: Initial ACUITY: 1 day PAIN SCORE: 8/10 LOCATION: Bilateral chest FINDINGS: A single view of the chest demonstrates the lungs to be symmetrically aerated without evidence of mas s, infiltrate or effusion. The cardiomediastinal contours are unremarkable. Osseous structures are intact. CONCLUSION: 1. Endotracheal tube and nasogastric tube are in place. Kali Kwan MD on May 31, 2017 at 4:44 Board Certified Radiologist. This report was verified electronically. ADDENDUM: The impression is incorrect and should say no acute cardiopulmonary disease Kali Kwan MD on May 31, 2017 at 5:04 Board Certified Radiologist. This report was verified electronically.
[2017-05-31 05:47] LABS: AUTOMATED NEUTROPHIL # 4.8 TH/MM3 (1.8-7.7); BASOPHIL % 0.3 % (0.0-2.0); EOSINOPHIL % 0.8 % (0.0-4.0); HEMOGLOBIN 13.5 GM/DL (11.6-15.3); LYMPH % 15.2 % (9.0-44.0); LYMPHOCYTE # 0.9 TH/MM3 (1.0-4.8); MEAN CELL VOLUME 85.2 FL (80.0-100.0); MEAN CORPUSCULAR HEMOGLOBIN 29.5 PG (27.0-34.0); MEAN CORPUSCULAR HGB CONC 34.7 % (32.0-36.0); MEAN PLATELET VOLUME 8.4 FL (7.0-11.0); MONO % 1.1 % (0.0-8.0); MONOCYTE # 0.1 TH/MM3 (0-0.9); NEUT % 82.6 % (16.0-70.0); PLATELET COUNT 283 TH/MM3 (150-450); RED BLOOD COUNT 4.57 MIL/MM3 (4.00-5.30); RED CELL DISTRIBUTION WIDTH 12.9 % (11.6-17.2); WHITE BLOOD COUNT 5.8 TH/MM3 (4.0-11.0)
[2017-05-31 06:04] LABS: ALT (GPT) 42 U/L (10-53)
[2017-05-31 06:16] LABS: ALBUMIN 3.5 GM/DL (3.4-5.0); ALKALINE PHOSPHATASE 82 U/L (45-117); AST (GOT) 42 U/L (15-37); BICARBONATE 22.9 MEQ/L (21.0-32.0); BLOOD UREA NITROGEN 9 MG/DL (7-18); CALCIUM 8.6 MG/DL (8.5-10.1); CHLORIDE 103 MEQ/L (98-107); CREATININE 0.77 MG/DL (0.50-1.00); GLOMERULAR FILTRATION RATE 87 ML/MIN (>89); GLUCOSE,RANDOM 95 MG/DL (74-106); SODIUM (NA) 136 MEQ/L (136-145); TOTAL BILIRUBIN ADULT 0.7 MG/DL (0.2-1.0); TOTAL PROTEIN 7.9 GM/DL (6.4-8.2); TROPONIN I LESS THAN 0.02 NG/ML (0.02-0.05)
--- NOTE | 2017-05-31 06:32 | PD ---
HPI Chief Complaint: Fever Time Seen by Provider: 04:16 Travel History International Travel<30 days: No Contact w/Intl Traveler<30days: No Traveled to known affect area: No History of Present Illness HPI Patient is a 31-year-old female with history of IV drug abuse, says she last injected methamphetamines 3 days ago, who comes in complaining of fever, body aches, chest pain. She says she has had septicemia in the past, and she is worried this is what she has again. She says it started an hour ago. She says she took some hydromorphone for her symptoms, but this has not helped. She has had some cough and congestion. She denies nausea or vomiting. She denies abdominal pain. She says she is very cold and she can't stop shivering. Nothing makes her symptoms better or worse. PFSH Past Medical History Anxiety: Yes Depression: Yes Cardiovascular Problems: Yes (HX OF ENDOCARDITIS) Diminished Hearing: No Kidney Stones: Yes Musculoskeletal: Yes (scoliosis, Doty Rods) Tetanus Vaccination: > 5 Years Influenza Vaccination: No ?: Not LMP: 05/30/2017 : 0 Ovarian Cysts: Yes (PCOS, endometriosis) Past Surgical History Genitourinary Surgery: Yes Tonsillectomy: Yes Other Surgery: Yes (breast implants ) Social History Alcohol Use: No Tobacco Use: Yes (2 PPD) Substance Use: Yes (1 week ago) Allergies-Medications (Allergen,Severity, Reaction): Coded Allergies: Penicillins (Verified Allergy, Severe, 04/25/17) metoclopramide (Verified Allergy, Severe, 04/25/17) ondansetron (Verified Allergy, Severe, 04/25/17) prochlorperazine (Verified Allergy, Severe, 04/25/17) vancomycin (Verified Allergy, Severe, 04/25/17) iodine (Verified Allergy, Unknown, 04/25/17) Reported Meds & Prescriptions Reported Meds & Active Scripts Active Reported Hydromorphone (Hydromorphone HCl) 8 Mg Tab 16 Mg PO Q6H PRN Trazodone (Trazodone HCl) 50 Mg Tab 50 Mg PO HS Metformin (Metformin HCl) 500 Mg Tab 500 Mg PO BIDPC Abilify (Aripiprazole) 2 Mg Tab 2 Mg PO DAILY Zoloft (Sertraline HCl) 100 Mg Tab 200 Mg PO DAILY Review of Systems Except as stated in HPI: all other systems reviewed are Neg General / Constitutional: Positive: Fever, Chills HENT: Positive: Congestion, No: Headaches, Lightheadedness Cardiovascular: Positive: Chest Pain or Discomfort Respiratory: Positive: Cough Gastrointestinal: No: Nausea, Vomiting, Abdominal Pain Musculoskeletal: Positive: Myalgias Skin: No Rash, No Change in Pigmentation Neurologic: No: Weakness, Dizziness Physical Exam Narrative GENERAL: Awake and alert, in no acute distress. SKIN: Focused skin assessment warm/dry. Tract canseco present on both arms, no signs of infection. HEAD: Atraumatic. Normocephalic. EYES: Pupils equal and round. No scleral icterus. ENT: Mucous membranes pink and moist. NECK: Trachea midline. No JVD. CARDIOVASCULAR: Tachycardia, no murmur. RESPIRATORY: No accessory muscle use. Clear to auscultation. Breath sounds equal bilaterally. GASTROINTESTINAL: Abdomen soft, non-tender, nondistended. MUSCULOSKELETAL: No obvious deformities. No clubbing. No cyanosis. No edema. NEUROLOGICAL: Awake and alert. No obvious cranial nerve deficits. Motor grossly within normal limits. Normal speech. PSYCHIATRIC: Appropriate mood and affect; insight and judgment normal. Data Data Last Documented VS Vital Signs Date Time Temp Pulse Resp B/P (MAP) Pulse Ox O2 Delivery O2 Flow Rate FiO2 05/31/17 02:47 99.3 86 18 140/97 (111) 100 Orders Orders Electrocardiogram (05/31/17 03:04) Complete Blood Count With Diff (05/31/17 03:04) Ckmb (Isoenzyme) Profile (05/31/17 03:04) Troponin I (05/31/17 03:04) Chest, Single Ap (05/31/17 03:04) Iv Access Insert/Monitor (05/31/17 03:04) Ecg Monitoring (05/31/17 03:04) Oxygen Administration (05/31/17 03:04) Oximetry (05/31/17 03:04) Electrocardiogram (05/31/17 04:38) Prothrombin Time / Inr (Pt) (05/31/17 04:38) Act Partial Throm Time (Ptt) (05/31/17 04:38) Lactic Acid Sepsis Protocol (05/31/17 04:38) Urinalysis - C+S If Indicated (05/31/17 04:38) Influenzae A/B Antigen (05/31/17 04:38) Blood Culture (05/31/17 04:38) Blood Glucose (05/31/17 04:38) Acetaminophen (Tylenol) (05/31/17 04:45) Sodium Chlor 0.9% 1000 Ml Inj (Ns 1000 M (05/31/17 04:38) Sodium Chlor 0.9% 1000 Ml Inj (Ns 1000 M (05/31/17 04:38) Ceftriaxone Inj (Rocephin Inj) (05/31/17 04:45) Comprehensive Metabolic Panel (05/31/17 05:00) CKMB (05/31/17 05:00) CKMB% (05/31/17 05:00) Labs Laboratory Tests Test 05/31/17 05:00 White Blood Count 5.8 TH/MM3 Red Blood Count 4.57 MIL/MM3 Hemoglobin 13.5 GM/DL Hematocrit 39.0 % Mean Corpuscular Volume 85.2 FL Mean Corpuscular Hemoglobin 29.5 PG Mean Corpuscular Hemoglobin Concent 34.7 % Red Cell Distribution Width 12.9 % Platelet Count 283 TH/MM3 Mean Platelet Volume 8.4 FL Neutrophils (%) (Auto) 82.6 % Lymphocytes (%) (Auto) 15.2 % Monocytes (%) (Auto) 1.1 % Eosinophils (%) (Auto) 0.8 % Basophils (%) (Auto) 0.3 % Neutrophils # (Auto) 4.8 TH/MM3 Lymphocytes # (Auto) 0.9 TH/MM3 Monocytes # (Auto) 0.1 TH/MM3 Eosinophils # (Auto) 0.0 TH/MM3 Basophils # (Auto) 0.0 TH/MM3 CBC Comment DIFF FINAL Differential Comment Blood Urea Nitrogen 9 MG/DL Creatinine 0.77 MG/DL Random Glucose 95 MG/DL Total Protein 7.9 GM/DL Albumin 3.5 GM/DL Calcium Level 8.6 MG/DL Alkaline Phosphatase 82 U/L Aspartate Amino Transf (AST/SGOT) 42 U/L Alanine Aminotransferase (ALT/SGPT) 42 U/L Total Bilirubin 0.7 MG/DL Sodium Level 136 MEQ/L Potassium Level 3.8 MEQ/L Chloride Level 103 MEQ/L Carbon Dioxide Level 22.9 MEQ/L Anion Gap 10 MEQ/L Estimat Glomerular Filtration Rate 87 ML/MIN Total Creatine Kinase 111 U/L Troponin I LESS THAN 0.02 NG/ML MDM Medical Decision Making Medical Screen Exam Complete: Yes Emergency Medical Condition: Yes Medical Record Reviewed: Yes Differential Diagnosis Influenza versus pneumonia versus endocarditis Narrative Course Patient is a 31-year-old female with history of IV drug abuse, who comes in complaining of fever, body aches, chest pain. Exam shows tachycardia. Patient is laying in the stretcher crying. When asked why she is crying, she states "I don't know, I can't stop." Patient developed a fever of 100.7 wall in the emergency department. IV established, labs sent. Patient given Rocephin, IV fluids, Tylenol. She will be placed in observation to obtain an echo to rule out endocarditis. Diagnosis Primary Impression: Fever Qualified Codes: R50.9 - Fever, unspecified Additional Impression: Chest pain Qualified Codes: R07.9 - Chest pain, unspecified Admitting Information Admitting Physician Requests: Observation Zee Mars MD May 31, 2017 06:32
[2017-05-31] MEDS ORDERED: SODIUM CHLORIDE 0.9% FLUSH 10 ML FLUSH IV FLUSH PRN (07:00)
[2017-05-31] MEDS ORDERED: NALOXONE HCL 0.4 MG/ML AMP IV PUSH PRN (07:00)
[2017-05-31 08:38] LABS: INTERNATIONAL NORMALIZED RATIO 1.3 RATIO; PROTHROMBIN TIME - PATIENT 12.9 SEC (9.8-11.6)
[2017-05-31] MEDS: SODIUM CHLORIDE 0.9% FLUSH 10 ML FLUSH IV FLUSH SCH ×2 (09:00→22:08)
--- NOTE | 2017-05-31 10:48 | HHI.HP ---
[facility] No Primary Care Physician Admission Diagnosis R/O endocarditis, fever Diagnoses: Chief Complaint: Fever chills, recent IVDA U Travel History International Travel<30 Days: No Contact w/Intl Traveler <30 Da: No Traveled to Known Affected Are: No History of Present Illness 31 years old IVDU presented to the ED after injecting methamphetamine 2 days ago complaining of fever or body ache, in ED she had a documented fever 101.9 with hypotension, patient has a history of depression anxiety and kidney stone, chest x-ray was unremarkable, urinalysis showed 3 WBC with positive leukocytes esterase, patient allergy to penicillin. Currently she is complaining of significant body ache no abdominal pain diarrhea or dysuria Review of Systems All systems reviewed and was positive for what is mentioned in history of present illness otherwise negative Past Family Social History Past Medical History Anxiety depression, history of endocarditis, history of kidney stone, PCO S, endometriosis, tonsillectomy, breast implants, Past Surgical History As above Allergies: Coded Allergies: Penicillins (Verified Allergy, Severe, 04/25/17) metoclopramide (Verified Allergy, Severe, 04/25/17) ondansetron (Verified Allergy, Severe, 04/25/17) prochlorperazine (Verified Allergy, Severe, 04/25/17) vancomycin (Verified Allergy, Severe, 04/25/17) iodine (Verified Allergy, Unknown, 04/25/17) Family History Review with the patient,not aware of significant medical history runs in his family Social History Half pack per day, she does methamphetamine and other iv drugs last shooting within the last 2 days, denied alcohol abuse Physical Exam Vital Signs Vital Signs Date Time Temp Pulse Resp B/P (MAP) Pulse Ox O2 Delivery O2 Flow Rate FiO2 05/31/17 10:47 99.4 100 18 97/56 (70) 100 Room Air 05/31/17 07:33 98 Room Air 05/31/17 07:33 (67) 98 Room Air 05/31/17 07:32 101.9 110 20 90/56 (67) 99 Room Air 1/10/18 06:00 99.0 05/31/17 02:47 99.3 86 18 140/97 (111) 100 Physical Exam GENERAL: This is a frail elderly patient, in no apparent distress. SKIN: Multiple tracking in both arms with dorsal fluctuant left hand possible abscess HEAD: Atraumatic. Normocephalic. EYES: Pupils equal round and reactive. Extraocular motions intact. No scleral icterus. ENT: Nose without bleeding, or drainage, Airway patent. NECK: Trachea midline. Supple CARDIOVASCULAR: Tachycardia without murmurs, gallops, or rubs. RESPIRATORY: Fair air entry bilaterally. No wheezes, rales, or rhonchi. GASTROINTESTINAL: Abdomen soft, non-tender, nondistended. Positive bowel sounds MUSCULOSKELETAL: Extremities without clubbing, cyanosis, or edema. Pedal pulses appreciated NEUROLOGICAL: Awake and alert. Moves all extremity. Normal speech.no focal neurological deficit Laboratory Laboratory Tests Test 05/31/17 05:00 05/31/17 06:30 05/31/17 08:16 05/31/17 08:18 White Blood Count 5.8 Red Blood Count 4.57 Hemoglobin 13.5 Hematocrit 39.0 Mean Corpuscular Volume 85.2 Mean Corpuscular Hemoglobin 29.5 Mean Corpuscular Hemoglobin Concent 34.7 Red Cell Distribution Width 12.9 Platelet Count 283 Mean Platelet Volume 8.4 Neutrophils (%) (Auto) 82.6 Lymphocytes (%) (Auto) 15.2 Monocytes (%) (Auto) 1.1 Eosinophils (%) (Auto) 0.8 Basophils (%) (Auto) 0.3 Neutrophils # (Auto) 4.8 Lymphocytes # (Auto) 0.9 Monocytes # (Auto) 0.1 Eosinophils # (Auto) 0.0 Basophils # (Auto) 0.0 CBC Comment DIFF FINAL Differential Comment Blood Urea Nitrogen 9 Creatinine 0.77 Random Glucose 95 Total Protein 7.9 Albumin 3.5 Calcium Level 8.6 Alkaline Phosphatase 82 Aspartate Amino Transf (AST/SGOT) 42 Alanine Aminotransferase (ALT/SGPT) 42 Total Bilirubin 0.7 Sodium Level 136 Potassium Level 3.8 Chloride Level 103 Carbon Dioxide Level 22.9 Anion Gap 10 Estimat Glomerular Filtration Rate 87 Total Creatine Kinase 111 Creatine Kinase MB 1.4 Troponin I LESS THAN 0.02 Lactic Acid Level 1.1 1.7 Prothrombin Time 12.9 Prothromb Time International Ratio 1.3 Activated Partial Thromboplast Time 28.0 Date/Time Source Procedure Growth Status 05/31/17 06:30 Blood Peripheral Aerobic Blood Culture Pending Received 05/31/17 06:30 Blood Peripheral Anaerobic Blood Culture Pending Received Result Diagram: 05/31/17 0500 05/31/17 0500 Imaging Last Impressions Chest X-Ray 05/31/17 0304 Signed Impressions: Service Date/Time: Wednesday, May 31, 2017 03:37 - CONCLUSION: 1. Endotracheal tube and nasogastric tube are in place. Kali Kwan MD ADDENDUM: The impression is incorrect and should say no acute cardiopulmonary disease Kali Kwan MD Caprini VTE Risk Assessment Caprini VTE Risk Assessment: No/Low Risk (score <= 1) Caprini Risk Assessment Model Point Value = 1 Point Value = 2 Point Value = 3 Point Value = 5 Age 41-60 Minor surgery BMI > 25 kg/m2 Swollen legs Varicose veins or History of unexplained or recurrent spontaneous Oral contraceptives or hormone replacement Sepsis (< 1 month) Serious lung disease, including pneumonia (< 1 month) Abnormal pulmonary function Acute myocardial infarction Congestive heart failure (< 1 month) History of inflammatory bowel disease Medical patient at bed rest Age 61-74 Arthroscopic surgery Major open surgery (> 45 min) Laparoscopic surgery (> 45 min) Malignancy Confined to bed (> 72 hours) Immobilizing plaster cast Central venous access Age >= 75 History of VTE Family history of VTE Factor V Leiden Prothrombin [id number] Lupus anticoagulant Anticardiolipin antibodies Elevated serum homocysteine Heparin-induced thrombocytopenia Other congenital or acquired thrombophilia Stroke (< 1 month) Elective arthroplasty Hip, pelvis, or leg fracture Acute spinal cord injury (< 1 month) Prophylaxis Regimen Total Risk Factor Score Risk Level Prophylaxis Regimen 0-1 Low Early ambulation 2 Moderate Order ONE of the following: *Sequential Compression Device (SCD) *Heparin 5000 units SQ BID 3-4 Higher Order ONE of the following medications: *Heparin 5000 units SQ TID *Enoxaparin/Lovenox 40 mg SQ daily (WT < 150 kg, CrCl > 30 mL/min) *Enoxaparin/Lovenox 30 mg SQ daily (WT < 150 kg, CrCl > 10-29 mL/min) *Enoxaparin/Lovenox 30 mg SQ BID (WT < 150 kg, CrCl > 30 mL/min) AND/OR *Sequential Compression Device (SCD) 5 or more Highest Order ONE of the following medications: *Heparin 5000 units SQ TID (Preferred with Epidurals) *Enoxaparin/Lovenox 40 mg SQ daily (WT < 150 kg, CrCl > 30 mL/min) *Enoxaparin/Lovenox 30 mg SQ daily (WT < 150 kg, CrCl > 10-29 mL/min) *Enoxaparin/Lovenox 30 mg SQ BID (WT < 150 kg, CrCl > 30 mL/min) AND *Sequential Compression Device (SCD) Assessment and Plan Assessment and Plan 31 years old female presented with fever chills or body ache active iv shooting IVDU with last iv shooting with the last 2 days Febrile illness with hypotension and Bandemia rule out sepsis> normal lactic acid History of endocarditis Left hand cellulitis/abscess Penicillin and vancomycin allergy DVT prophylaxis Plan: Admit to inpatient Iv fluid, started on Rocephin, I will add insulin to cover for MRSA 2-D echo Pain management with morphine Consult ID Monitor CBC and temperature DVT prophylaxis with ambulation Discussed Condition With Patient and nurse Physician Certification 2 Midnight Certification Type: Admission for Inpatient Services Order for Inpatient Services The services are ordered in accordance with Medicare regulations or non- Medicare payer requirements, as applicable. In the case of services not specified as inpatient-only, they are appropriately provided as inpatient services in accordance with the 2-midnight benchmark. Estimated LOS (days): 3 days is the estimated time the patient will need to remain in the hospital, assuming treatment plan goals are met and no additional complications. Post-Hospital Plan: Not yet determined Josef Dooley MD May 31, 2017 10:48
[2017-05-31] MEDS ORDERED: VANCOMYCIN INJ 850 MG in SODIUM CHLOR 0.9% 250 ML INJ 250 ML IV SCH (11:00)
[2017-05-31] MEDS ORDERED: Vancomycin Consult Pharmacy 1 EA OTHER SCH (11:00)
[2017-05-31 11:20] LABS: BACTERIA, URINE RARE /hpf; BILIRUBIN, URINE NEG (NEG); BLOOD, URINE MOD (NEG); GLUCOSE,URINE NEG (NEG); KETONE, URINE NEG (NEG); NITRITE,URINE NEG (NEG); SQUAMOUS EPITHELIAL CELL URINE 3 /hpf (0-5); URINE COLOR YELLOW (YELLW/STRAW); URINE LEUKOCYTE ESTERASE TRACE (NEG)
[2017-05-31] MEDS: LINEZOLID 600 MG PREMIX 300 ML IV SCH (16:28)
[2017-05-31] MEDS ORDERED: ACETAMINOPHEN 325 MG TAB PO PRN (17:00)
[2017-05-31 17:24] LABS: TROPONIN I LESS THAN 0.02 NG/ML (0.02-0.05)
--- NOTE | 2017-05-31 17:58 | MB ---
cc: JONES MALONEY MD,NAT WHALEN DATE OF CONSULTATION: 05/31/[address] Dooley. REASON FOR CONSULTATION: IV drug user with fever. HISTORY OF PRESENT ILLNESS This is a 31-year-old white female who used drugs within the past few days and developed fever, chills, body aches and pain, and presented to the emergency department early today. She is currently shivering and states that she has aches all over. The temperature when she presented to the emergency department was 99.3. Her white blood cell count is normal. Blood cultures have been taken. Urinalysis revealed three white cells and urine culture was also taken. The urine culture pending. Chest x-ray was performed and shows no acute cardiopulmonary disease. The patient states that she also has profuse sweats. The temperature pete to 101.9 degrees after she presented to the emergency department. This consultation is requested for infectious disease evaluation. The patient mentioned that she had endocarditis about a year ago and was treated with IV antibiotics. She cannot present to me details of the workup or information on cultures. PAST MEDICAL HISTORY Endocarditis. IV drug abuse. ALLERGIES VANCOMYCIN. PENICILLIN PROCHLORPERAZINE. ONDANSETRON. METOCLOPRAMIDE. IODINE. MEDICATIONS: 1. Ceftriaxone. 2. Linezolid. SOCIAL HISTORY: Positive IV drug use. Positive tobacco use, 1/2 pack per day. No alcohol. FAMILY HISTORY: Noncontributory. REVIEW OF SYSTEMS: Pertinent as mentioned above in the history of present illness. PHYSICAL EXAMINATION: A well-developed female. She is awake. She is in distress from chills. VITAL SIGNS: Temperature 99.8, blood pressure 103/67, respiratory rate 19, heart rate 101. HEENT: The head is atraumatic. Extraocular movements grossly intact. Pupils reactive to light. No conjunctival erythema. Oropharynx: Moist mucosa. Neck: Supple. No swelling. Lungs: Clear breath sounds. Heart: Regular. S1-S2 without murmurs, rubs, or gallops. Abdomen: Bowel sounds present, soft, nontender. Rectal: Not performed. Extremities: No clubbing, cyanosis or edema. Skin: No rash. Neuro: No focal findings. Psych: The patient is calm and cooperative. LABORATORY DATA: WBC 5.8, platelets 283, 82% neutrophils, hemoglobin 13.5, creatinine 0.77, BUN 9, sodium 136. IMPRESSION 1. Probable sepsis associated of IV drug use. 2. Fever, decreased blood pressure, and tachycardia. 3. Urinary tract infection. 4. Probable endocarditis. The patient has a prior history of endocarditis. 5. ALLERGY TO VANCOMYCIN AND PENICILLIN. RECOMMENDATIONS: 1. Continue linezolid. 2. Continue ceftriaxone. 3. Monitor the blood cultures. 4. Monitor urine culture. 5. 2-D echocardiogram to evaluate for endocarditis, since the patient has prior history of endocarditis. The patient's progress will be followed and further recommendations will be given upon follow up if necessary. Jones Maloney MD FD/JAVI /3:17 PM /4:55 PM
--- NOTE | 2017-05-31 21:19 | EKG ---
Date Performed: 05/31/2017 Time Performed: 03:15:09 PTAGE: 31 years EKG: SINUS TACHYCARDIA POSSIBLE RIGHT VENTRICULAR CONDUCTION DELAY ABNORMAL RHYTHM ECG NO PREVIOUS TRACING DOCTOR: Kriss Elias Interpretating Date/Time 05/31/2017 21:18:43
[2017-05-31] MEDS ORDERED: hydrOXYzine HCL 10 MG TAB PO ONE (23:00)
[2017-06-01] VITALS (25 sets, daily range): BP systolic 90–127; BP diastolic 63–86; PULSE 66–108; RESP 16–20; TEMP 98–99; O2SAT 96–98
[2017-06-01] MEDS: LINEZOLID 600 MG PREMIX 300 ML IV SCH ×2 (02:00→13:29)
[2017-06-01] MEDS ORDERED: cefTRIAXone INJ 1,000 MG in SODIUM CHLORIDE 0.9% INJ 100 ML IV SCH (07:00)
--- NOTE | 2017-06-01 08:29 | HHI.PR ---
Subjective Remarks Follow up for fever, chills and a patient with a history of IV drug use. She uses IV methamphetamine 3 days prior to this admission. Patient is currently doing well. However she complains that she is anxious. She has been afebrile today. Objective Vitals Vital Signs Date Time Temp Pulse Resp B/P (MAP) Pulse Ox O2 Delivery O2 Flow Rate FiO2 06/01/17 04:21 98.5 06/01/17 04:00 70 06/01/17 04:00 97 06/01/17 03:00 87 06/01/17 02:00 69 06/01/17 01:00 84 06/01/17 00:46 99.0 88 16 122/79 (93) 97 06/01/17 00:00 76 05/31/17 23:00 87 05/31/17 22:00 78 05/31/17 21:00 70 05/31/17 20:00 83 05/31/17 20:00 98.8 84 16 122/79 (93) 99 05/31/17 19:00 95 05/31/17 16:00 99.8 85 18 121/82 (95) 98 05/31/17 15:01 99.8 101 19 103/67 (79) 100 05/31/17 10:47 99.4 100 18 97/56 (70) 100 Room Air I/O 05/31/17 05/31/17 05/31/17 06/01/17 06/01/17 06/01/17 07:00 15:00 23:00 07:00 15:00 23:00 Intake Total 2340 ml 300 ml 240 ml Balance 2340 ml 300 ml 240 ml Intake Oral 240 ml 240 ml IV Total 2100 ml 300 ml # Voids 1 2 Result Diagram: 05/31/17 0500 05/31/17 0500 Imaging Last Impressions Chest X-Ray 05/31/17 0304 Signed Impressions: Service Date/Time: Wednesday, May 31, 2017 03:37 - CONCLUSION: 1. Endotracheal tube and nasogastric tube are in place. Kali Kwan MD ADDENDUM: The impression is incorrect and should say no acute cardiopulmonary disease Kali Kwan MD Objective Remarks GENERAL: Alert, oriented 3, NAD. SKIN: Warm and dry. HEAD: Normocephalic. EYES: No scleral icterus. No injection or drainage. NECK: Supple, trachea midline. No JVD or lymphadenopathy. CARDIOVASCULAR: Regular rate and rhythm without murmurs, gallops, or rubs. RESPIRATORY: Breath sounds equal bilaterally. No accessory muscle use. GASTROINTESTINAL: Abdomen soft, non-tender, nondistended. MUSCULOSKELETAL: No cyanosis, or edema. BACK: Nontender without obvious deformity. No CVA tenderness. Procedures None A/P Problem List: (1) Fever ICD Code: R50.9 - Fever, unspecified Status: Acute (2) History of endocarditis ICD Code: Z86.79 - Personal history of other diseases of the circulatory system (3) IVDU (intravenous drug user) ICD Code: F19.90 - Other psychoactive substance use, unspecified, uncomplicated Assessment and Plan Ms. Lizarraga is a 31-year-old female with a history of IV drug abuse, endocarditis who presented to the emergency department on 05/31/2017 due to fever , body aches and chest discomfort. Troponins were negative. - Fever - IV drug user - Patient is currently on linezolid 600 mg every 12 hours and ceftriaxone 1 g every 24 hours. - There was some concern over refusal of treatments. I discussed with patient. Patient is not refusing abx. - We will continue current abx and follow blood cultures. ID is following. - Blood cultures are negative today. However, we have to wait at least until 2 days of Blood cultures result. - If negative, we can likely discharge patient home tomorrow. - Echocardiogram pending. - Anxiety - Will give clonazepam 0.5 mg every 8 hours when necessary. - Chronic pain - will give patient 1 time dose of by mouth hydromorphone. Encouraged patient to ambulate and use Tylenol for pain, headache, fever. Naproxen added for pain 5-10. May consider Tramadol. Full code. Ambulation. Problem Qualifiers (1) Fever: Qualified Codes: R50.9 - Fever, unspecified Andry Smith DO Jun 01, 2017 8:29 am
[2017-06-01] MEDS: SODIUM CHLORIDE 0.9% FLUSH 10 ML FLUSH IV FLUSH SCH ×2 (09:00→20:45)
[2017-06-01] MEDS: clonazePAM 0.5 MG TAB PO PRN ×2 (09:13→17:44)
[2017-06-01] MEDS ORDERED: HYDROmorphone HCL 4 MG TAB PO ONE (13:15)
[2017-06-01] MEDS ORDERED: NAPROXEN 375 MG TAB PO PRN (14:00)
--- NOTE | 2017-06-01 15:08 | HHI.IDPN ---
Note Infectious Disease Note Patient feels achy and feverish. Notes sweats, chills. MCGHEE. 31-year-old white female IVDU admitted with fever, chills, body aches and pain. The temperature pete to 101.9 degrees after she presented to the emergency department. The patient mentioned that she had endocarditis about a year ago and was treated with IV antibiotics. PAST MEDICAL HISTORY Endocarditis. IV drug abuse. ALLERGIES VANCOMYCIN. PENICILLIN PROCHLORPERAZINE. ONDANSETRON. METOCLOPRAMIDE. IODINE. MEDICATIONS: 1. Ceftriaxone. 2. Linezolid. SOCIAL HISTORY: Positive IV drug use. Positive tobacco use, 1/2 pack per day. No alcohol. OBJECTIVE: Vital Signs Date Time Temp Pulse Resp B/P (MAP) Pulse Ox O2 Delivery O2 Flow Rate FiO2 06/01/17 13:19 108 06/01/17 12:00 75 06/01/17 11:31 98.3 86 127/86 (100) 97 06/01/17 11:00 73 06/01/17 10:00 74 06/01/17 09:00 66 06/01/17 08:00 96 06/01/17 07:55 98.0 114/73 (87) 06/01/17 07:00 88 06/01/17 04:21 98.5 06/01/17 04:00 70 06/01/17 04:00 97 06/01/17 03:00 87 06/01/17 02:00 69 06/01/17 01:00 84 06/01/17 00:46 99.0 88 16 122/79 (93) 97 06/01/17 00:00 76 05/31/17 23:00 87 05/31/17 22:00 78 05/31/17 21:00 70 05/31/17 20:00 83 05/31/17 20:00 98.8 84 16 122/79 (93) 99 05/31/17 19:00 95 05/31/17 16:00 99.8 85 18 121/82 (95) 98 Laboratory Tests Test 05/31/17 05:00 White Blood Count 5.8 TH/MM3 Red Blood Count 4.57 MIL/MM3 Hemoglobin 13.5 GM/DL Hematocrit 39.0 % Mean Corpuscular Volume 85.2 FL Mean Corpuscular Hemoglobin 29.5 PG Mean Corpuscular Hemoglobin Concent 34.7 % Red Cell Distribution Width 12.9 % Platelet Count 283 TH/MM3 Mean Platelet Volume 8.4 FL Neutrophils (%) (Auto) 82.6 % Lymphocytes (%) (Auto) 15.2 % Monocytes (%) (Auto) 1.1 % Eosinophils (%) (Auto) 0.8 % Basophils (%) (Auto) 0.3 % Neutrophils # (Auto) 4.8 TH/MM3 Lymphocytes # (Auto) 0.9 TH/MM3 Monocytes # (Auto) 0.1 TH/MM3 Eosinophils # (Auto) 0.0 TH/MM3 Basophils # (Auto) 0.0 TH/MM3 CBC Comment DIFF FINAL Differential Comment Laboratory Tests Test 05/31/17 05:00 05/31/17 06:30 05/31/17 08:18 05/31/17 16:55 Blood Urea Nitrogen 9 MG/DL Creatinine 0.77 MG/DL Random Glucose 95 MG/DL Total Protein 7.9 GM/DL Albumin 3.5 GM/DL Calcium Level 8.6 MG/DL Alkaline Phosphatase 82 U/L Aspartate Amino Transf (AST/SGOT) 42 U/L Alanine Aminotransferase (ALT/SGPT) 42 U/L Total Bilirubin 0.7 MG/DL Sodium Level 136 MEQ/L Potassium Level 3.8 MEQ/L Chloride Level 103 MEQ/L Carbon Dioxide Level 22.9 MEQ/L Anion Gap 10 MEQ/L Estimat Glomerular Filtration Rate 87 ML/MIN Total Creatine Kinase 111 U/L 117 U/L Creatine Kinase MB 1.4 NG/ML Troponin I LESS THAN 0.02 NG/ML LESS THAN 0.02 NG/ML Lactic Acid Level 1.1 mmol/L 1.7 mmol/L Microbiology Date/Time Source Procedure Growth Status 05/31/17 06:30 Blood Peripheral Aerobic Blood Culture - Preliminary NO GROWTH IN 1 DAY Resulted 05/31/17 06:30 Blood Peripheral Anaerobic Blood Culture - Preliminary NO GROWTH IN 1 DAY Resulted 05/31/17 06:30 Blood Peripheral Aerobic Blood Culture - Preliminary NO GROWTH IN 1 DAY Resulted 05/31/17 06:30 Blood Peripheral Anaerobic Blood Culture - Preliminary NO GROWTH IN 1 DAY Resulted 05/31/17 11:00 Urine Catheterized Urine Urine Culture Pending Received IMAGING: Chest X-Ray 05/31/17 3370 Signed Impressions: Service Date/Time: Wednesday, May 31, 2017 03:37 - CONCLUSION: 1. Endotracheal tube and nasogastric tube are in place. Kali Kwan MD ADDENDUM: The impression is incorrect and should say no acute cardiopulmonary disease Kali Kwan MD PHYSICAL EXAMINATION: GENERAL: No acute distress. HEENT: The head is atraumatic. Extraocular movements grossly intact. Pupils reactive to light. No conjunctival erythema. Oropharynx: Moist mucosa. Neck: Supple. No swelling. Lungs: Clear breath sounds. Heart: Regular. S1-S2 without murmurs, rubs, or gallops. Abdomen: Bowel sounds present, soft, nontender. Extremities: No clubbing, cyanosis or edema. Skin: No rash. Neuro: No focal findings. Psych: The patient is calm and cooperative. IMPRESSION 1. Probable sepsis associated of IV drug use. Fever, decreased blood pressure, and tachycardia. 2. Urinary tract infection. 3. Probable endocarditis. The patient has a prior history of endocarditis. 4. ALLERGY TO VANCOMYCIN AND PENICILLIN. RECOMMENDATIONS: 1. Continue linezolid. 2. Continue ceftriaxone. 3. Monitor the blood cultures. 4. Monitor urine culture. 5. Follow 2-D echocardiogram to evaluate for endocarditis. Gatito Gerard MD Jun 01, 2017 15:08
--- NOTE | 2017-06-01 20:40 | EKG ---
Date Performed: 05/31/2017 Time Performed: 22:28:16 PTAGE: 31 years EKG: Sinus rhythm Normal ECG SINCE PRIOR TRACING NO SIGNIFICANT CHNAGE PREVIOUS TRACING : 05/31/2017 03.15 DOCTOR: Evon Jesus Interpretating Date/Time 06/01/2017 20:39:27
== END 2017-06-01 21:10 | disposition left against medical advice (07) ==
LOC: NEPC 02:42 → NEDA 07:04 → HCIS 15:47
PROVIDERS: ADMIT Hospitalist; ATTEND Hospitalist
DX: R50.9 Fever, unspecified (principal); I95.9 Hypotension, unspecified; N39.0 Urinary tract infection, site not specified; L03.114 Cellulitis of left upper limb; F41.8 Other specified anxiety disorders; E28.2 Polycystic ovarian syndrome; R00.0 Tachycardia, unspecified; R52 Pain, unspecified; R07.9 Chest pain, unspecified; R05 Cough; M41.9 Scoliosis, unspecified; G89.29 Other chronic pain; F19.90 Other psychoactive substance use, unspecified, uncomplicated; F17.200 Nicotine dependence, unspecified, uncomplicated; Z79.84 Long term (current) use of oral hypoglycemic drugs; Z86.79 Personal history of other diseases of the circulatory system; Z87.442 Personal history of urinary calculi; Z98.82 Breast implant status; Z88.0 Allergy status to penicillin; Z88.1 Allergy status to other antibiotic agents
CPT/HCPCS: 71045; 76937; 80053; 81001; 82550; 82552; 83605; 84484; 85025; 85610; 85730; 87040; 87086; 93005; 96361; 96365; 96366; 96376; 99285; G0378; J0696; J2020; J7030